=== PATIENT | female | born 1995 | race Caucasian/White ===

== ENCOUNTER 2016-09-11 03:30 | Inpatient (IN) | payer BC, OTHER ==
[2016-09-11] VITALS (12 sets, daily range): BP systolic 117–155; BP diastolic 69–94
[~2016-09-11] VITALS: Ht 170.2 cm; Wt 104.8 kg
[2016-09-11 04:26] LABS: EOSINOPHIL (%) 0.5 % (0-5); EOSINOPHIL COUNT 0.1 K/uL (0-0.3); HEMATOCRIT 32.7 % (36.0-46.0); IMMATURE GRANULOCYTE (%) 0.8 % (0.0-0.7); IMMATURE GRANULOCYTE COUNT 0.1 K/uL; INSTRUMENT ABS NEUTROPHIL CT 14.1 K/uL; LYMPHOCYTE COUNT 1.8 K/uL (1.0-2.8); MCH 22.8 PG (29.0-34.0); MCHC 30.9 G/DL (30.0-36.0); MCV 73.8 FL (83-99); MEAN PLAT.VOLUME 10.1 uM^3 (9.5-12.4); MONOCYTE (%) 5.2 % (3-12); MONOCYTE COUNT 0.9 K/uL (0-0.8); NEUTROPHIL COUNT 14.1 K/uL (1.8-6.4); PLATELET COUNT 346 K/uL (156-360); RBC DIS.WIDTH-CV 17.3 % (11.8-14.6); RBC DIS.WIDTH-SD 44.9 % (39-53); RED BLOOD COUNT 4.43 M/uL (3.80-5.20)
[2016-09-12 06:26] LABS: EOSINOPHIL (%) 0.8 % (0-5); EOSINOPHIL COUNT 0.1 K/uL (0-0.3); HEMATOCRIT 29.2 % (36.0-46.0); IMMATURE GRANULOCYTE COUNT 0.1 K/uL; INSTRUMENT ABS NEUTROPHIL CT 8.1 K/uL; MCH 22.8 PG (29.0-34.0); MCHC 29.8 G/DL (30.0-36.0); MCV 76.6 FL (83-99); MEAN PLAT.VOLUME 10.6 uM^3 (9.5-12.4); MONOCYTE COUNT 0.5 K/uL (0-0.8); NEUTROPHIL (%) 74.6 % (45-76); NEUTROPHIL COUNT 8.1 K/uL (1.8-6.4); PLATELET COUNT 277 K/uL (156-360); RBC DIS.WIDTH-CV 17.9 % (11.8-14.6); RBC DIS.WIDTH-SD 49.1 % (39-53); RED BLOOD COUNT 3.81 M/uL (3.80-5.20)
[2016-09-12 06:45] LABS: WHITE BLOOD COUNT 10.9 K/uL (4.1-10.2)
[2016-09-12 07:52] VITALS: BP 138/74
[2016-09-12 22:46] VITALS: BP 131/75
[2016-09-13 05:33] VITALS: BP 134/83
[2016-09-13] MEDS ORDERED: CHROMAGEN,1 CAPSULE PO (10:21)
[2016-09-13] MEDS ORDERED: IBUPROFEN800 MG PO (11:48)
== END 2016-09-13 12:50 | disposition home or self-care (01) | DRG 767 ==
LOC: LDRP-OP 03:30 → 2WEST 03:31 → LDRP-OP 10-08 01:48
PROVIDERS: Midwife; Obstetrics & Gynecology
DX: O72.0 Third-stage hemorrhage (principal); O70.0 First degree perineal laceration during delivery; O77.0 Labor and delivery complicated by meconium in amniotic fluid; O99.02 Anemia complicating childbirth; D62 Acute posthemorrhagic anemia; O99.214 Obesity complicating childbirth; E66.9 Obesity, unspecified; Z68.32 Body mass index [BMI] 32.0-32.9, adult; Z37.0 Single live birth; Z3A.40 40 weeks gestation of pregnancy
CPT/HCPCS: 85025; J0295; J0595; J1050; J1170; J7050; J7120